=== PATIENT | male | born 1985 | race American Indian/Alaskan Native ===

== ENCOUNTER 2021-10-11 02:54 | Emergency (ER) | payer MEDICAID ==
--- NOTE | 2021-10-11 06:52 | Emergency Department Report ---
HPI - General Chief Complaint: Psych Time Seen by Provider: 10/11/21 06:22 - HPI HPI: Room 15 Patient is a 35-year-old male present with chief complaint of auditory hallucinations. Patient states she has a diagnosis of paranoid schizophrenia but has been off his medication for least 1 month. Patient admits to 1 month of auditory hallucinations. When asked what the voices are saying the patient states "I cannot recall." Patient also states "they are not telling me to hurt anybody or harm myself." Patient states at home he has bouts of "shouting" and to speaking to people that are not there. Patient denies suicidal homicidal ideation. ED Past Medical Hx - Past Medical History Hx Psychiatric Treatment: Yes (Paranoid schizophrenia) - Surgical History Past Surgical History?: No - Family History Family history: no significant - Social History Smoking Status: Current Every Day Smoker (1/3 pack/day) Substance Use Type: None (Denies illicit drug use) - Medications Home Medications: Home Medications Medication Instructions Recorded Confirmed Last Taken Type OLANZapine [Zyprexa] 20 mg PO BID 10/11/21 10/11/21 Unknown History risperiDONE [RisperDAL] 4 mg PO BID 10/11/21 10/11/21 Unknown History ED Review of Systems ROS: Stated complaint: MH,HEARING VOICES Other details as noted in HPI Constitutional: no symptoms reported Eyes: denies: eye pain ENT: denies: throat pain Respiratory: no symptoms reported Cardiovascular: denies: chest pain Endocrine: no symptoms reported Gastrointestinal: denies: abdominal pain Genitourinary: denies: dysuria Musculoskeletal: denies: back pain Neurological: denies: headache Psychiatric: auditory hallucinations Physical Exam - Physical Exam Vital Signs: Vital Signs 10/11/21 05:25 Temperature 98.0 F Pulse Rate 85 Respiratory 17 Rate Blood Pressure 119/51 [Right] O2 Sat by Pulse 99 Oximetry Physical Exam: GENERAL: The patient is well-developed well-nourished male sleeping on stretcher easily awakened by tactile stimuli. [] HEENT: Normocephalic. Atraumatic. Extraocular motions are intact. Patient has moist mucous membranes. NECK: Supple. Trachea midline CHEST/LUNGS: Clear to auscultation. There is no respiratory distress noted. HEART/CARDIOVASCULAR: Regular. There is no tachycardia. There is no gallop rub or murmur. ABDOMEN: Abdomen is soft, nontender. Patient has normal bowel sounds. There is no abdominal distention. SKIN: There is no rash. There is no edema. There is no diaphoresis. NEURO: The patient is awake, alert, and oriented. The patient is cooperative. The patient has no focal neurologic deficits. The patient has normal speech. GCS 15 MUSCULOSKELETAL: There is no evidence of acute injury. ED Course Vital Signs 10/11/21 05:25 Temperature 98.0 F Pulse Rate 85 Respiratory 17 Rate Blood Pressure 119/51 [Right] O2 Sat by Pulse 99 Oximetry ED Medical Decision Making - Lab Data Result diagrams: 10/11/21 07:38 10/11/21 07:38 Laboratory Tests 10/11/21 10/11/21 10/11/21 07:26 07:26 07:38 WBC 6.6 RBC 4.67 Hgb 14.0 Hct 42.4 MCV 91 MCH 30 MCHC 33 RDW 15.0 Plt Count 210 Lymph % (Auto) 42.1 H [place] % (Auto) 6.0 Eos % (Auto) 2.8 Baso % (Auto) 0.6 Lymph # (Auto) 2.8 [place] # (Auto) 0.4 Eos # (Auto) 0.2 Baso # (Auto) 0.0 Seg Neutrophils % 48.5 Seg Neutrophils # 3.2 Sodium Potassium Chloride Carbon Dioxide Anion Gap BUN Creatinine Estimated GFR BUN/Creatinine Ratio Glucose Calcium Total Bilirubin AST ALT Alkaline Phosphatase Total Protein Albumin Albumin/Globulin Ratio Urine Color Straw Urine Turbidity Clear Urine pH 6.0 Ur Specific [place] 1.004 Urine Protein <15 mg/dl Urine Glucose (UA) Neg Urine Ketones Neg Urine Blood Neg Urine Nitrite Neg Urine Bilirubin Neg Urine Urobilinogen < 2.0 Ur Leukocyte Esterase Neg Urine WBC (Auto) < 1.0 Urine RBC (Auto) < 1.0 Salicylates Urine Opiates Screen Negative Urine Methadone Screen Negative Acetaminophen Ur Barbiturates Screen Negative Ur Phencyclidine Scrn Negative Ur Amphetamines Screen Negative U Benzodiazepines Scrn Negative Urine Cocaine Screen Negative U Marijuana (THC) Screen Negative Drugs of Abuse Note Disclamer Plasma/Serum Alcohol SARS-CoV-2 (PCR) 10/11/21 10/11/21 10/11/21 07:38 07:38 07:38 WBC RBC Hgb Hct MCV MCH MCHC RDW Plt Count Lymph % (Auto) [place] % (Auto) Eos % (Auto) Baso % (Auto) Lymph # (Auto) [place] # (Auto) Eos # (Auto) Baso # (Auto) Seg Neutrophils % Seg Neutrophils # Sodium 139 Potassium 4.4 Chloride 104.3 Carbon Dioxide 25 Anion Gap 14 BUN 12 Creatinine 0.9 Estimated GFR > 60 BUN/Creatinine Ratio 13 Glucose 80 Calcium 9.4 Total Bilirubin < 0.20 AST 17 ALT 14 Alkaline Phosphatase 72 Total Protein 7.4 Albumin 4.3 Albumin/Globulin Ratio 1.4 Urine Color Urine Turbidity Urine pH Ur Specific [place] Urine Protein Urine Glucose (UA) Urine Ketones Urine Blood Urine Nitrite Urine Bilirubin Urine Urobilinogen Ur Leukocyte Esterase Urine WBC (Auto) Urine RBC (Auto) Salicylates < 0.3 L Urine Opiates Screen Urine Methadone Screen Acetaminophen 5.0 L Ur Barbiturates Screen Ur Phencyclidine Scrn Ur Amphetamines Screen U Benzodiazepines Scrn Urine Cocaine Screen U Marijuana (THC) Screen Drugs of Abuse Note Plasma/Serum Alcohol SARS-CoV-2 (PCR) 10/11/21 10/11/21 07:38 08:10 WBC RBC Hgb Hct MCV MCH MCHC RDW Plt Count Lymph % (Auto) [place] % (Auto) Eos % (Auto) Baso % (Auto) Lymph # (Auto) [place] # (Auto) Eos # (Auto) Baso # (Auto) Seg Neutrophils % Seg Neutrophils # Sodium Potassium Chloride Carbon Dioxide Anion Gap BUN Creatinine Estimated GFR BUN/Creatinine Ratio Glucose Calcium Total Bilirubin AST ALT Alkaline Phosphatase Total Protein Albumin Albumin/Globulin Ratio Urine Color Urine Turbidity Urine pH Ur Specific [place] Urine Protein Urine Glucose (UA) Urine Ketones Urine Blood Urine Nitrite Urine Bilirubin Urine Urobilinogen Ur Leukocyte Esterase Urine WBC (Auto) Urine RBC (Auto) Salicylates Urine Opiates Screen Urine Methadone Screen Acetaminophen Ur Barbiturates Screen Ur Phencyclidine Scrn Ur Amphetamines Screen U Benzodiazepines Scrn Urine Cocaine Screen U Marijuana (THC) Screen Drugs of Abuse Note Plasma/Serum Alcohol < 0.01 SARS-CoV-2 (PCR) Negative - Differential Diagnosis Paranoid schizophrenia Critical care attestation.: If time is entered above; I have spent that time in minutes in the direct care of this critically ill patient, excluding procedure time. ED Disposition Clinical Impression: Paranoid schizophrenia, Auditory hallucinations Disposition: 30 STILL A PATIENT Is pt being admited?: No Does the pt Need Aspirin: No Condition: Stable Referrals: CARBUCCIA,MYCHAL, MD [Primary Care Provider] - 3-5 Days Time of Disposition: 09:41 (Awaiting psych eval)
[2021-10-11 07:39] LABS: Bilirubin,Urine NEG (Negative); Blood,Urine NEG (Negative); Color,Urine Straw (Yellow); Protein,Urine <15 mg/dL mg/dL (Negative); RBC,Urine < 1.0 /HPF (0.0-6.0); Urobilinogen,Urine < 2.0 mg/dL (<2.0)
[2021-10-11 07:47] LABS: Amphetamine Screen,Urine Negative; Benzodiazepines Screen,Urine Negative; Cannabinoid Screen,Urine Negative; Cocaine Screen,Urine Negative; Methadone Screen,Urine Negative; Opiate Screen,Urine Negative
[2021-10-11 07:51] LABS: WBC,Urine < 1.0 /HPF (0.0-6.0)
[2021-10-11 08:07] LABS: Basophils % (Auto) 0.6 % (0.0-1.8); Eosinophils # (Auto) 0.2 K/mm3 (0.0-0.4); Eosinophils % (Auto) 2.8 % (0.0-4.3); Hematocrit 42.4 % (35.5-45.6); Lymphocytes # (Auto) 2.8 K/mm3 (1.2-5.4); Lymphocytes % (Auto) 42.1 % (13.4-35.0); Mean Corpuscular HGB Conc 33 % (32-34); Mean Corpuscular Volume 91 fl (84-94); Monocytes # (Auto) 0.4 K/mm3 (0.0-0.8); Platelet Count 210 K/mm3 (140-440); Red Blood Count 4.67 M/mm3 (3.65-5.03)
[2021-10-11 08:17] LABS: Alanine Aminotransferase 14 units/L (7-56); Albumin 4.3 g/dL (3.9-5); BUN/Creatinine Ratio 13; Blood Urea Nitrogen 12 mg/dL (9-20); Calcium 9.4 mg/dL (8.4-10.2); Hemolysis Index 18
[2021-10-11] MEDS ORDERED: risperiDONE 1 MG TAB PO SCH (10:00)
--- NOTE | 2021-10-11 10:48 | Progress Note ---
Subjective - Reason for Consult Consult date: 10/11/21 Reason for consult: hallucination - Chief Complaint Chief complaint: HPI: Patient is a 35-year-old male present with chief complaint of auditory hallucinations. Patient states she has a diagnosis of paranoid schizophrenia but has been off his medication for least 1 month. Patient admits to 1 month of auditory hallucinations. When asked what the voices are saying the patient states "I cannot recall." Patient also states "they are not telling me to hurt anybody or harm myself." Patient states at home he has bouts of "shouting" and to speaking to people that are not there. Patient denies suicidal homicidal ideation. The patient was seen today he says he's been hearing voices that has been louder since being off his meds. He says he takes zyprexa 20mg bid, and risperidone. He says he has a history of paranoid schizophrenia. The patient says "I'm fine when I'm on my medicine. I ask the patient what were the voices saying. He says "I can't really make them out." I ask where they saying anything negative, he says "no just sounds." I really just need to get back on them." He says he's been off about three months. He denies SI/HI. He says "no, no suicidal or homicidal thoughts just need my medication for the hallucinations." He denies any fear or feeling of endangerment. PAST PSYCHIATRIC HISTORY Diagnoses: paranoid schizophrenia Suicide attempts or Self-harm behavior: Denies Prior psychiatric hospitalizations: Yes Substance Abuse history: Denies Previous psychiatric medications tried: olanzapine, risperidone Outpatient treatment: yes SOCIAL HISTORY Marital Status: Single Living Arrangements: Lives alone Employment Status: disabled Access to guns/weapons: Denies Education: 12th grade History of abuse: Denies Legal History: Denies ROS Constitutional: Negative for weight loss EMT: Respiratory: Negative for cough or hemoptysis All other systems reviewed and are negative MENTAL STATUS EXAMINATION General Appearance: Dressed appropriately. Behavior: Calm and cooperative. Good eye contact. Mood: okay Affect: Congruent to stated mood Speech: Normal tone and pace Thought Process: Goal oriented Thought Content: hallucinations Suicidal Ideation: Denies Homicidal Ideation: Denies Hallucinations: Denies Delusions: None elicited Insight and Judgment: Limited Memory/Cognition: Limited Assessment and Plan (1) Schizophrenia Treatment Plan Olanzapine 20mg po daily Risperidone 2mg po BID Risks, benefits and alternatives of medications discussed with the patient, questions answered and consent obtained from patient. PSYCHOTHERAPY: Supportive psychotherapy provided MEDICAL: Per primary team DELIRIUM PRECAUTIONS: Please re-orient patient frequently, keep lights on during the day, and minimize benzodiazepines and opiates as these medications could worsen patient's confusion. PRODUCTION GRIP: Per primary DISPOSITION: Do not Recommend acute inpatient psychiatric hospitalization at this time. The sharepoint consultant to give all necessary resources The patient to follow up with outpatient psych in 7 to 14 days upon discharge Will sign off. Thank you for the consult. Please contact with any questions and/or concerns. Case discussed with Dr. Christopher who agrees with current disposition Mental Status Exam - Vital signs Last Vital Signs Temp 98.0 F 10/11/21 05:25 Pulse 85 10/11/21 05:25 Resp 18 10/11/21 05:29 BP 119/51 10/11/21 05:25 Pulse Ox 99 10/11/21 08:21
[2021-10-11 12:35] VITALS: BP 100/67
== END 2021-10-11 12:34 | disposition still patient (30) ==
LOC: ED 02:54
DX: F20.0 Paranoid schizophrenia (principal); Z20.822 Contact with and (suspected) exposure to COVID-19
CPT/HCPCS: 36415; 80053; 80307; 81001; 85025; 99284; U0003; 80320; G0480